=== PATIENT | female | born 1955 | race Hispanic/Latino ===

== ENCOUNTER 2017-06-29 07:35 | Outpatient (CLI) | payer BC ==
--- NOTE | 2017-06-29 08:37 | ULT ---
RENAL ULTRASOUND: INDICATION: History of renal stones. COMPARISON: CT of the abdomen and pelvis dated 06/29/17. FINDINGS: The right kidney measures 9.4 x 4.7 x 4.8 cm. The left kidney measures 10.3 x 4.5 x 5 cm. Prevoid bladder volume was 70.6 cc. There are bilateral ureteral jets seen at the level of the bladder. There is a stone present within the distal aspect of the level of the right UVJ measuring approximately 7 mm. There are left renal cysts that are stable to the CT examination, the largest seen within the superi or pole measuring 5.7 x 5.5 x 5.1 cm. There is a peripelvic cyst measuring 1.9 cm seen within the m id to lower aspect of the left renal sinus. No hydronephrosis is demonstrated. IMPRESSION: 1. Small nonobstructing stone seen within the distal right ureter at the level of the right uretero vesical junction measuring approximately 7 mm. Bilateral ureteral jets are demonstrated. No thomas hydronephrosis is seen involving the right kidney. 2. Left renal cyst. POS: [facility]
[2017-06-29 09:09] LABS: Anion Gap 16 mmol/L (10-20); BUN (Urea Nitrogen) 12 mg/dL (9.8-20.1); Calc. Creatinine Clearance 0 mL/min (70-130); Calcium 9.3 mg/dL (7.8-10.44); Carbon Dioxide 22 mmol/L (22-29); Chloride 106 mmol/L (98-107); Estimated GFR-MDRD 64
--- NOTE | 2017-06-29 09:36 | RAD ---
KUB: History: Renal calculi. FINDINGS: The bowel gas pattern appears nonobstructed. No definitive renal calculi are seen. Calcification in the right side of the pelvis could be a potential distal right ureteral calculus. There are arthriti c changes of the spine and hips. IMPRESSION: Calcification in the right side of the pelvis, potentially a distal ureteral calculus. POS: [facility]
== END 2017-06-29 07:36 | disposition home or self-care (01) ==
LOC: ULT 07:35
PROVIDERS: ATTEND Urology
DX: N20.2 Calculus of kidney with calculus of ureter (principal); Q61.01 Congenital single renal cyst; N28.89 Other specified disorders of kidney and ureter
CPT/HCPCS: 36415; 74000; 76770; 80048

== ENCOUNTER 2017-07-01 10:01 | Outpatient (CLI) | payer BC ==
[2017-07-01 11:33] LABS: Hematocrit 41.5 % (36.0-47.0); Mean Platelet Volume 7.9 fL (7.4-10.4); Red Blood Cell (RBC) Count 4.96 mill/uL (4.20-5.40); White Blood Cell (WBC) Count 8.8 thou/uL (4.8-10.8)
[2017-07-01 11:48] LABS: Anion Gap 16 mmol/L (10-20); BUN (Urea Nitrogen) 13 mg/dL (9.8-20.1); Calc. Creatinine Clearance 0 mL/min (70-130); Calcium 9.6 mg/dL (7.8-10.44); Carbon Dioxide 23 mmol/L (22-29); Chloride 104 mmol/L (98-107); Estimated GFR-MDRD 68
[2017-07-01 11:51] LABS: PTT 25.6 SEC (22.9-36.1); Prothrombin Time 13.3 SEC (12.0-14.7)
[2017-07-01 14:08] LABS: Bilirubin Negative (Negative); Blood, Urine Negative (Negative); Glucose, Urine (Dipstick) Negative (Negative); Ketone, Urine Negative (Negative); Nitrite Negative (Negative); Protein, Urine (Dipstick) Negative (Neg-Trace); Urobilinogen 0.2 mg/dL (0.2-1.0)
[2017-07-01 14:32] LABS: Bacteria/HPF Rare-Few HPF (None Seen); Hyaline Casts/LPF 0-3 HYALINE CAST LPF (0-3 Hyaline); RBC/HPF 0-3 HPF (0-3); Squamous Epithelial 0-3 HPF (0-3)
== END 2017-07-01 10:02 | disposition home or self-care (01) ==
LOC: LABBT 10:01
PROVIDERS: ATTEND Urology
DX: N20.1 Calculus of ureter (principal)
CPT/HCPCS: 80048; 81001; 85027; 85610; 85730; 87086

== ENCOUNTER 2017-07-06 07:11 | Day surgery (SDC) | payer BC ==
[2017-07-01 09:59] VITALS: BMI 28.8
[2017-07-06] MEDS ORDERED: Iothalamate Meglumine 60% 50 ML VIAL FS ONE ×2 (07:16→12:21)
--- NOTE | 2017-07-06 09:12 | RAD ---
AP ABDOMEN: Date: 07-06-17 History: 7-year-old preoperative abdominal radiographs. Comparison: 06-29-17 FINDINGS: Decrease in large amount of stool in the colon. There continues to be a moderate amount of stool rem aining. No definite evidence of distal right ureteral calculi is seen. IMPRESSION: No visible evidence of radiopaque ureteral calculi seen. POS: [facility]
[2017-07-06] MEDS ORDERED: Meropenem 500 MG in Sodium Chloride 0.9% 100 ML IVPB SCH (09:15)
[2017-07-06] MEDS ORDERED: Promethazine HCl 25 MG/ML VIAL ONE (10:12)
[2017-07-06] MEDS ORDERED: Fentanyl 100 MCG/2 ML VIAL ONE (10:12)
[2017-07-06] MEDS ORDERED: Scopolamine 1.5 mg/72 hour Patch ONE (10:36)
[2017-07-06] MEDS ORDERED: Ondansetron HCl/PF 4 MG/2 ML Vial ONE (10:44)
[2017-07-06] MEDS ORDERED: Propofol 200 MG/20 ML VIAL ONE (10:44)
[2017-07-06] MEDS ORDERED: ePHEDrine/0.9% NaCl/PF SYRINGE 50 mg/10 ml ONE (10:44)
[2017-07-06] MEDS ORDERED: PHENYLEPHRINE-NS 100 MCG/ML 10 ML SYRINGE ONE (10:44)
[2017-07-06] MEDS ORDERED: Lidocaine 1% PF 5 ML VIAL ONE (10:44)
[2017-07-06] MEDS ORDERED: SUGAMMADEX SODIUM 200 MG/2 ML VIAL ONE (11:14)
--- NOTE | 2017-07-06 11:47 | OP ---
DATE OF PROCEDURE: 07/06/2017 PRIMARY CARE PHYSICIAN: Collin Sheppard M.D. PREOPERATIVE DIAGNOSIS: A 61-year-old female with history of right 7 mm distal ureteral calculi just proximal to the uterovesicular junction since 04/2017. POSTOPERATIVE DIAGNOSIS: A 61-year-old female with history of right 7 mm distal ureteral calculi just proximal to the uterovesicular junction since 2016. PROCEDURES: Cystoscopy, right retrograde, balloon dilation of the distal ureter , rigid ureteroscopy, laser lithotripsy, basket extraction of stone fragments, 6 x 26 double-J ureteral stent placement with dangler taped to the pubic symphysis. SURGEON: Serina Jenkins D.O. ANESTHESIA: General. COMPLICATIONS: None apparent. DISPOSITION: To the recovery room in stable condition. SPECIMEN: Stone for chemical analysis. INTRAOPERATIVE FINDINGS: 1. Bladder is grossly unremarkable. 2. Right distal ureteral stone just proximal to the intramural ureter, approximately 7-8 mm. INDICATIONS FOR THE PROCEDURE AND HISTORY: Ms. Whitehead is a 61-year-old female with history of coronary artery disease and diabetes who presented for right flank pain, CT obtained by PCP demonstrating 7 mm right ureteral calculi distal , right punctate renal lithiasis. Left kidney is grossly unremarkable. She presented to my office just last month, with history of right distal ureteral calculi. The patient did not have significant discomfort; however, not had passed stone. Followup imaging demonstrated persistent stone nidus and advised regarding stone treatment given prolonged period of stone presence with non- progression on medical expulsion therapy. She has been provided with appropriate antibiotic regimen and desired to proceed. Risks and complications including bleeding, pain, infection, stricture formation, injury to ureter, bladder, kidney, and sepsis reviewed. All questions answered to her satisfaction and she desired to proceed. DESCRIPTION OF THE PROCEDURE: After an informed consent is signed, the patient is taken to the operating room, placed in a dorsal lithotomy position with the genital area prepped and draped in the usual surgical sterile fashion. Stone nidus was easily seen on fluoroscopy. Bilateral CONSTANTINE tolentino SCDs were provided. A 21 Dominican cystoscope was utilized for cystoscopy which demonstrated normal bladder mucosa. The UOs were in normal anatomical location. There was no evidence of bladder stone. A retrograde pyelogram was performed gently with 1: 1 diluted contrast demonstrating a filling defect consistent with the stone in the distal ureter. A 0.35 sensor wire was able to be passed without difficulty to the level of the right lower pole. Using a [employer] 4 cm 12 Dominican balloon dilator, we dilated the intramural ureter with ease. The rigid ureteroscope was able to be subsequently passed without difficulty. A large stone was seen in the level of the ureter just proximal to the intramural portion. Using 365 micron laser fiber, the stone was prepped, fragmented into multiple pieces. At the end of the procedure, all stone fragments were evacuated, rendered stone free. As there is endoscopic clearance, we did place a stent on dangler. A 6 x 26 double-J ureteral stent was passed without difficulty with the proximal coil in the renal pelvis, distal coil with adequate redundancy in the bladder. She tolerated the procedure well and transported to the recovery room in stable condition. As there is endoscopic clearance, she will see me on Tuesday for stent pull and dangler. She is to continue her antibiotic regimen, refill prescription for ciprofloxacin for 7 days provided. AZO p.r.n., Ditropan 5 mg p.r.n., Colace p.r.n., and Valatie 5/ 325 #50. MTDD
[2017-07-06] MEDS ORDERED: Phenazopyridine HCl 97.5 MG TABLET ONE (11:57)
[2017-07-06] MEDS ORDERED: Oxybutynin Chloride 5 MG TAB ONE (11:57)
--- NOTE | 2017-07-06 12:55 | RAD ---
REROGRADE URETEROGRAM: HISTORY: Ureteral stone. TECHNIQUE: Intraoperative fluoroscopy was provided for a retrograde study, as performed by Dr. Jenkins. FINDINGS: Multiple spot fluoroscopic images show contrast opacification of a right renal collecting system wit h minimal caliectasis. The ureter is not significantly dilated. Final images show a double pigtail catheter overlying the course of the right ureter. Flow time equals 0.3 minutes. POS: [facility]
== END 2017-07-06 13:51 | disposition home or self-care (01) ==
LOC: SDC 07:11
PROVIDERS: ATTEND Urology
DX: N20.1 Calculus of ureter (principal); E11.40 Type 2 diabetes mellitus with diabetic neuropathy, unspecified; I25.10 Atherosclerotic heart disease of native coronary artery without angina pectoris; F32.9 Major depressive disorder, single episode, unspecified; M79.7 Fibromyalgia; G25.81 Restless legs syndrome; K21.9 Gastro-esophageal reflux disease without esophagitis; G43.909 Migraine, unspecified, not intractable, without status migrainosus; K76.0 Fatty (change of) liver, not elsewhere classified; Z88.0 Allergy status to penicillin; Z88.8 Allergy status to other drugs, medicaments and biological substances; Z79.2 Long term (current) use of antibiotics; Z79.84 Long term (current) use of oral hypoglycemic drugs; Z79.899 Other long term (current) drug therapy; Z95.5 Presence of coronary angioplasty implant and graft; Z87.442 Personal history of urinary calculi; Z90.89 Acquired absence of other organs; Z98.890 Other specified postprocedural states
CPT/HCPCS: 74000; 74420; 82365; 88300; C1758; C1769; J2001; J2185; J2405; J2550; J2704; J3010; J7050; Q9961

== ENCOUNTER 2017-08-30 11:10 | Outpatient (CLI) | payer BC ==
--- NOTE | 2017-08-30 13:42 | MMO ---
BILATERAL SCREENING MAMMOGRAM: Date: 08-30-17 Comparison: 2012 This study is interpreted with the assistance of computer aided detection. FINDINGS: Scattered fibroglandular densities. There is an oblong shaped mass density in the inner left breast w ith internal calcifications which appear stable. There are other scattered benign appearing calcifica tions including vascular calcifications in both breasts. No suspicious interval change. Recommend one year follow up. IMPRESSION: BIRADS 2 - benign findings. POS: [facility]
== END 2017-08-30 11:11 | disposition home or self-care (01) ==
LOC: MAMMO 11:10
PROVIDERS: ATTEND Family Medicine
DX: Z12.31 Encounter for screening mammogram for malignant neoplasm of breast (principal)
CPT/HCPCS: 77067; G0202

== ENCOUNTER 2017-11-15 07:46 | Outpatient (CLI) | payer BC ==
--- NOTE | 2017-11-15 08:34 | RAD ---
SINGLE VIEW OF THE ABDOMEN: COMPARISON: 07/06/17. HISTORY: Renal calculi. FINDINGS: A single view of the abdomen shows a nonspecific, nonobstructed bowel gas pattern. No obvious calcif ications are seen projecting over either renal shadow or along the course of the ureters. Two ligati on clips are seen in the pelvis. IMPRESSION: Unremarkable exam. POS: [facility]
--- NOTE | 2017-11-15 08:47 | ULT ---
ULTRASOUND RENAL BILATERAL STANDARD: HISTORY: Calculus of kidney. COMPARISON: Ultrasound 06/29/17. FINDINGS: The right kidney measures 8.9 x 4.5 x 4.5 cm and the left kidney measures 12.5 x 5.2 x 5.4 cm. Diffu se increased hepatic echotexture. Large cyst superior pole left kidney measures up to 6.1 cm. There appears to be a calculus within th e urinary bladder. The prevoid urinary bladder volume was 193 mL and postvoid volume is 25 mL. No hydronephrosis. IMPRESSION: 1. Similar appearance to the large left renal cyst. 2. Increased hepatic echotexture. 3. Calculus layering at the urinary bladder measuring 8 mm. POS: [facility]
[2017-11-15 08:48] LABS: Bilirubin Negative (Negative); Blood, Urine Moderate (Negative); Clarity CLOUDY (Clear); Glucose, Urine (Dipstick) Negative (Negative); Leukocyte Large (Negative); Nitrite Positive (Negative); Protein, Urine (Dipstick) Negative (Neg-Trace); Specific Gravity, Urine 1.016 (1.002-1.036); Urobilinogen 0.2 mg/dL (0.2-1.0); pH, Urine 5.5 (5.0-9.0)
[2017-11-15 08:50] LABS: Bacteria/HPF 4+ HPF (None Seen); Hyaline Casts/LPF 0-3 HYALINE CAST LPF (0-3 Hyaline); RBC/HPF 21-50 HPF (0-3)
[2017-11-15 09:10] LABS: Anion Gap 13 mmol/L (10-20); BUN (Urea Nitrogen) 9 mg/dL (9.8-20.1); Calc. Creatinine Clearance 0 mL/min (70-130); Calcium 9.8 mg/dL (7.8-10.44); Carbon Dioxide 26 mmol/L (23-31); Chloride 105 mmol/L (98-107); Estimated GFR-MDRD 71; Glucose 131 mg/dL (80-115); Potassium 4.2 mmol/L (3.5-5.1); Sodium 140 mmol/L (136-145); Uric Acid 4.4 mg/dL (2.6-6.0)
== END 2017-11-15 07:47 | disposition home or self-care (01) ==
LOC: ULT 07:46
PROVIDERS: ATTEND Urology
DX: N20.0 Calculus of kidney (principal); N28.1 Cyst of kidney, acquired; N21.0 Calculus in bladder
CPT/HCPCS: 36415; 74018; 76770; 80048; 81001; 83970; 84550; 87077; 87086; 87186

== ENCOUNTER 2018-04-17 15:38 | Outpatient (CLI) | payer BC ==
--- NOTE | 2018-04-17 17:14 | RAD ---
RIGHT KNEE 4 VIEWS: Date: 04/17/18 HISTORY: Fall. Right knee injury. FINDINGS: Joint spaces are preserved. No acute fracture, dislocation, or fluid distention of the suprapatellar bursa. IMPRESSION: No acute osseous abnormalities are demonstrated. POS: [facility]
== END 2018-04-17 15:39 | disposition home or self-care (01) ==
LOC: SCSRAD 15:38
PROVIDERS: ATTEND Family Medicine
DX: M25.561 Pain in right knee (principal)

== ENCOUNTER 2018-08-31 07:48 | Outpatient (CLI) | payer BC | END 2018-08-31 07:49 | disposition home or self-care (01) | LOC: BICMAMMO 07:48 | PROVIDERS: ATTEND Family Medicine | DX: Z12.31 Encounter for screening mammogram for malignant neoplasm of breast (principal); Z80.3 Family history of malignant neoplasm of breast | CPT/HCPCS: 77063; 77067 ==

== ENCOUNTER 2018-09-11 07:45 | Outpatient (CLI) | payer BC ==
--- NOTE | 2018-09-11 17:17 | NM ---
NUCLEAR MEDICINE GASTRIC EMPTYING WITH MEAL: HISTORY: Gastroparesis. COMPARISON: None. TECHNIQUE: The patient was given 2.1 millicuries of technetium 99m sulfur colloid orally in eggs. FINDINGS: There was 39% emptying at 30 minutes, 59% emptying at 1 hour, 61% emptying at 2 hours, 66% emptying a t 3 hours, and 77% emptying at 4 hours. IMPRESSION: Delayed gastric emptying with only 77% emptying at 4 hours. POS: [facility]
== END 2018-09-11 07:46 | disposition home or self-care (01) ==
LOC: NM 07:45
PROVIDERS: ATTEND Internal Medicine Gastroenterology
DX: K76.0 Fatty (change of) liver, not elsewhere classified (principal); Z87.19 Personal history of other diseases of the digestive system
CPT/HCPCS: 78264; A9541

== ENCOUNTER 2018-09-15 07:46 | Outpatient (CLI) | payer BC ==
--- NOTE | 2018-09-15 09:16 | ULT ---
ULTRASOUND HEPATIC DOPPLER: Date: 09/15/18 HISTORY: Gallbladder polyps. Fatty liver. COMPARISON: CT abdomen dated 04/29/17. FINDINGS: Visualized portions of the aorta, IVC, and pancreas are unremarkable. Increased hepatic echotexture s uggesting steatosis. Portal vein is patent with antegrade flow. Common bile duct measures 4.0 mm, normal. Right kidney measures 10.1 x 4.9 x 5.4 cm, without mass, hydronephrosis, or abnormal calcifications. Spleen measures 9.2 cm in length. Large cyst superior pole left kidney measuring up to 5.0 cm. There appears to be a cholesterolosis with polyposis of the gallbladder. IMPRESSION: 1. Diffuse hepatic steatosis. 2. Likely a cholesterolosis of the gallbladder with multiple cholesterol polyps. 3. Left renal cyst. 4. Normal phasicity and flow of the portal and hepatic veins. 5. Normal phasicity and flow of the hepatic artery and splenic artery. POS: [facility]
== END 2018-09-15 07:47 | disposition home or self-care (01) ==
LOC: ULT 07:46
PROVIDERS: ATTEND Internal Medicine Gastroenterology
DX: K76.0 Fatty (change of) liver, not elsewhere classified (principal); N28.1 Cyst of kidney, acquired; Z87.19 Personal history of other diseases of the digestive system
CPT/HCPCS: 76705

== ENCOUNTER 2018-11-06 06:44 | Outpatient (CLI) | payer BC | END 2018-11-06 06:45 | disposition home or self-care (01) | LOC: LABBT 06:44 | PROVIDERS: ATTEND Surgery | DX: Z01.818 Encounter for other preprocedural examination (principal); K82.4 Cholesterolosis of gallbladder | CPT/HCPCS: 93005; 93010 ==

== ENCOUNTER 2018-11-09 07:26 | Day surgery (SDC) | payer BC ==
[2018-11-06 11:52] VITALS: BMI 28.8
[2018-11-09] MEDS ORDERED: Fentanyl 100 MCG/2 ML VIAL ONE (08:42)
[2018-11-09] MEDS ORDERED: Midazolam HCl 2 mg/2 ml Vial ONE (08:42)
[2018-11-09] MEDS ORDERED: Bupivacaine HCl 0.5%/Epinephrine 1:200,000/PF 30 ml Vial ONE (10:15)
[2018-11-09] MEDS ORDERED: Glycopyrrolate 0.2 MG/ML 5 ML SYRINGE ONE (13:19)
[2018-11-09] MEDS ORDERED: Rocuronium Bromide 10 MG/ML (10ML VIAL) ONE (13:19)
[2018-11-09] MEDS ORDERED: Ondansetron PF 4 MG/2 ML Vial ONE (13:19)
[2018-11-09] MEDS ORDERED: Dexamethasone 20 MG/5 ML VIAL ONE (13:19)
[2018-11-09] MEDS ORDERED: PROPOFOL 200 MG/20 ML VIAL ONE (13:19)
[2018-11-09] MEDS ORDERED: PHENYLEPHRINE-NS 100 MCG/ML 10 ML SYRINGE ONE (13:19)
--- NOTE | 2018-11-10 15:42 | OP ---
DATE OF PROCEDURE: 11/09/2018 PREOPERATIVE DIAGNOSES: 1. History of gallbladder polyps, multiple. 2. History of chronic hepatitis. 3. History of chronic steatohepatitis. POSTOPERATIVE DIAGNOSES: 1. History of gallbladder polyps, multiple. 2. History of chronic hepatitis. 3. History of chronic steatohepatitis. PROCEDURES: 1. Laparoscopic cholecystectomy. 2. Liver biopsy. ANESTHESIA: General. COMPLICATIONS: None. SPECIMEN: Gallbladder and liver biopsy. PROCEDURE IN DETAIL: The patient was taken to the operating room and laid supine on the operating room table. After general anesthetic was obtained, the abdomen was prepped and draped in a sterile fashion. A curved incision was made below the umbilicus. Cautery was used to dissect down to the umbilical fascia. Umbilical fascia was incised and held up using a Monie. The abdominal cavity was entered using a Ludivina clamp. Holding stitch of Vicryl was placed on each side of the fascia. Martinez trocar was placed. High-flow pneumoperitoneum was obtained. An upper midline 5 mm port and 2 right upper quadrant 5 mm ports were placed under direct camera visualization. The gallbladder was retracted from the gallbladder fossa. The peritoneum of the gallbladder was opened anteriorly and posteriorly. The critical view triangle was seen showing only the cystic duct and cystic artery branching from medial to lateral. There were no other branching structures. Two clips were placed proximally on the cystic duct and one laterally. It was cut using laparoscopic scissors. The cystic artery was taken in the same way. Electrocautery was then used to dissect the gallbladder out of the gallbladder fossa. The gallbladder was placed in an Endo catch bag and brought out through the Martinez. There was no bleeding or bile in the liver bed. The cystic duct stump and cystic artery stump were intact, without evidence of extravasation or bleeding. All port sites were infiltrated using local anesthesia. All ports were removed under camera visualization. Pneumoperitoneum was let down. A core biopsy of the liver is performed and the area in the liver is cauterized using cautery. The Vicryl was used to close the fascial defect below the umbilicus. All incisions were irrigated and closed using 4-0 Monocryl and Dermabond. The patient was en route to Recovery in stable condition. All instrument counts, needle counts and lap counts were correct. Job ID: [id number]
== END 2018-11-09 11:32 | disposition home or self-care (01) ==
LOC: SDC 07:26
PROVIDERS: ATTEND Surgery
PROC: 0FT44ZZ Resection of Gallbladder, Percutaneous Endoscopic Approach (ICD-10-PCS; principal; 2018-11-09)
PROC: 0FB03ZX Excision of Liver, Percutaneous Approach, Diagnostic (ICD-10-PCS; principal; 2018-11-09)
DX: K82.4 Cholesterolosis of gallbladder (principal); K76.0 Fatty (change of) liver, not elsewhere classified; E11.40 Type 2 diabetes mellitus with diabetic neuropathy, unspecified; I25.10 Atherosclerotic heart disease of native coronary artery without angina pectoris; F32.9 Major depressive disorder, single episode, unspecified; M79.7 Fibromyalgia; G25.81 Restless legs syndrome; K21.9 Gastro-esophageal reflux disease without esophagitis; G43.909 Migraine, unspecified, not intractable, without status migrainosus; G47.00 Insomnia, unspecified; E11.43 Type 2 diabetes mellitus with diabetic autonomic (poly)neuropathy; K31.84 Gastroparesis; Z79.84 Long term (current) use of oral hypoglycemic drugs; Z79.899 Other long term (current) drug therapy; Z88.0 Allergy status to penicillin; Z88.8 Allergy status to other drugs, medicaments and biological substances; Z95.5 Presence of coronary angioplasty implant and graft
CPT/HCPCS: 88304; 88307; 88313; J0670; J1100; J2250; J2405; J2704; J3010

== ENCOUNTER 2019-03-19 16:15 | Observation (INO) | payer BC ==
--- NOTE | 2019-03-19 16:59 | CT ---
CT Brain WO Con HISTORY: Fall with head injury COMPARISON: None. FINDINGS: The ventricular and cisternal system is within normal limits. There is some decreased atten uation to the periventricular white matter suggesting some chronic white matter change. There are no signs of intracerebral hemorrhage or extra-axial fluid collections. The mastoid air cells are mahendra r. Minimal ethmoid air cell mucosal changes seen. IMPRESSION: No acute intracranial abnormalities.
--- NOTE | 2019-03-19 17:23 | RAD ---
LEFT KNEE FOUR VIEWS: 03/19/19 HISTORY: Knee injury. The bones appear slightly demineralized. There are arthritic changes of the knee. There is no signs o f fracture or dislocation. No joint effusion. IMPRESSION: Mild arthritic changes of the knee. POS: [facility]
--- NOTE | 2019-03-19 17:24 | RAD ---
RIGHT FOOT THREE VIEWS: 03/19/19 HISTORY: Injury to foot. There is some minimal arthritic changes of the first metatarsophalangeal joint. There is no signs of fracture or dislocation. IMPRESSION: No evidence of fracture. POS: [facility]
--- NOTE | 2019-03-19 17:27 | RAD ---
LEFT HAND THREE VIEWS: 03/19/19 HISTORY: Fall. There is a fracture involving the base of the fifth metacarpal. Also on the AP projection, there is s ome bony overlap with the hammate which would suggest there is an associated dislocation. There is al so a base of the fourth metacarpal fracture. IMPRESSION: Base of fourth and fifth metacarpal fractures. The base of the fifth metacarpal appears to be dorsall y displaced in relation to the hammate. POS: [facility]
[2019-03-19] MEDS ORDERED: Lidocaine 1% w/Epinephrine 1:100K 20 ML VIAL ONE (17:54)
[2019-03-19] MEDS ORDERED: Acetaminophen 500 MG TAB ONE (17:54)
[2019-03-19] MEDS ORDERED: Ketorolac Tromethamine 30 MG/ML VIAL ONE (18:08)
[2019-03-19] MEDS ORDERED: Adacel (T-DAP) 0.5 ML SYRINGE ONE (18:08)
--- NOTE | 2019-03-19 18:33 | CT ---
CT OF LEFT WRIST PERFORMED WITHOUT CONTRAST ENHANCEMENT: 03/19/19 HISTORY: Fall with wrist injury. The distal radius and ulna are normal in appearance. The proximal carpal row is normal. There is an intra-articular fracture of the base of the fourth metacarpal. This is almost a verticall y oriented fracture. The fracture extends from the volar side of the metacarpal shaft into the joint space. The relationship with the hammate is fairly normal. The fracture involving the base of the fifth metatarsal is a small avulsive type injury and it is ass ociated with volar dislocation of the base of the fifth metacarpal. It lies directly on the ulnar yumiko e of the hook of the hammate. There is a fracture of the ulnar side of the hammate associated with th is. The hook of the hammate is intact. IMPRESSION: 1. Essentially nondisplaced intra-articular fracture of the base of the fourth metacarpal. 2. Fracture of the base of the fifth metacarpal which is a small avulsive type fracture also inc luding a fracture along the ulnar side of the hamate bone and volar dislocation of the base of the fi fth metacarpal which lies directly adjacent to the hook of the hammate. POS: [facility]
[2019-03-19] MEDS ORDERED: Bacitracin Zinc 1 Packet ONE (19:14)
[2019-03-19 19:51] LABS: #Basophils 0.1 thou/uL (0.0-0.2); #Eosinphils 0.5 thou/uL (0.0-0.7); #Lymphocytes 3.3 thou/uL (1.20-3.40); #Monocytes 0.7 thou/uL (0.11-0.59); #Neutrophils 5.3 thou/uL (1.40-6.50); %Basophils 0.8 % (0.0-1.0); %Eosinophils 5.6 % (0.0-10.0); %Lymphocytes 33.4 % (21.0-51.0); %Monocytes 6.8 % (0.0-10.0); %Neutrophils 53.5 % (42.0-75.0); Mean Corpuscular HGB CONC 33.4 g/dL (32.0-36.0); Mean Corpuscular Hemoglobin 26.9 pg (27.0-31.0); Mean Corpuscular Volume 80.6 fL (78.0-98.0); Mean Platelet Volume 8.5 fL (7.4-10.4); Platelet Count 192 thou/uL (130-400); RBC Distribution Width 13.8 % (11.5-14.5); Red Blood Cell (RBC) Count 4.46 mill/uL (4.20-5.40); White Blood Cell (WBC) Count 9.8 thou/uL (4.8-10.8)
[2019-03-19 20:04] LABS: Anion Gap 14 mmol/L (10-20); BUN (Urea Nitrogen) 14 mg/dL (9.8-20.1); Calc. Creatinine Clearance 0 mL/min (70-130); Carbon Dioxide 22 mmol/L (23-31); Chloride 108 mmol/L (98-107); Estimated GFR-MDRD 80; Glucose 107 mg/dL (80-115); Potassium 4.2 mmol/L (3.5-5.1); Sodium 140 mmol/L (136-145)
[2019-03-19] MEDS ORDERED: Morphine 2 MG/ML SYRINGE SLOW IVP PRN (21:57)
[2019-03-19] MEDS ORDERED: Morphine 4 MG/ML VIAL SLOW IVP PRN (21:57)
[2019-03-19] MEDS ORDERED: Ondansetron ODT 4 MG TAB SL PRN (21:58)
[2019-03-19] MEDS ORDERED: Ondansetron PF 4 MG/2 ML Vial IVP PRN (21:58)
[2019-03-19 23:34] VITALS: BMI 28.8
[2019-03-20] MEDS ORDERED: Clindamycin/D5W 600 MG in Premix Bag 1 BAG IVPB SCH ×2 (06:00→13:00)
[2019-03-20] MEDS ORDERED: Clindamycin/D5W 600 mg/50 ml Premix Bag ONE (07:07)
[2019-03-20] MEDS ORDERED: Midazolam HCl 2 mg/2 ml Vial ONE (07:19)
[2019-03-20] MEDS ORDERED: Fentanyl 100 MCG/2 ML VIAL ONE ×2 (07:19→10:10)
[2019-03-20] MEDS ORDERED: Dexamethasone 4 mg/ml Vial ONE (07:29)
[2019-03-20] MEDS ORDERED: Scopolamine 1.5 mg/72 hour Patch ONE (07:31)
[2019-03-20] MEDS ORDERED: Propofol 1,000 MG/100 ML VIAL IV ONE (08:38)
[2019-03-20] MEDS ORDERED: Bacitracin Zinc Ointment 30 gm TUBE ONE (08:39)
[2019-03-20] MEDS ORDERED: Bupivacaine PF 0.5% 30 ML VIAL ONE (08:39)
[2019-03-20] MEDS ORDERED: Sodium Chloride 0.9% 10 ML ONE (08:39)
[2019-03-20] MEDS ORDERED: Bupivacaine HCl 0.5%/Epinephrine 1:200,000/PF 30 ml Vial ONE (10:44)
[2019-03-20] MEDS ORDERED: Ondansetron HCl/PF 4 MG/2 ML Vial IVP PRN (12:03)
[2019-03-20] MEDS ORDERED: Morphine 4 MG/ML VIAL SLOW IVP PRN (12:57)
[2019-03-20] MEDS ORDERED: HYDROcodone/Acetaminophen 7.5/325 mg Tablet PO PRN (12:57)
--- NOTE | 2019-03-20 13:31 | RAD ---
RIGHT HAND: INDICATIONS: Imaging during open reduction and internal fixation procedure. TECHNIQUE: A total of 5 fluoroscopic views are presented from the OR. FINDINGS: These images show plate and screws transfixing the 4th metacarpal. Pins transfix the base of the 5th metacarpal. POS: [facility]
[2019-03-20] MEDS ORDERED: Dexamethasone 20 MG/5 ML VIAL ONE (14:27)
[2019-03-20] MEDS ORDERED: Ondansetron PF 4 MG/2 ML Vial ONE (14:27)
[2019-03-20] MEDS ORDERED: PROPOFOL 200 MG/20 ML VIAL ONE (14:27)
[2019-03-20 15:44] VITALS: BP 107/71; TEMP 98.7
--- NOTE | 2019-03-20 17:01 | OP ---
DATE OF PROCEDURE: 03/20/2019 PREOPERATIVE DIAGNOSES: 1. Left 5th carpometacarpal dislocation. 2. 4th carpometacarpal dislocation, left side. 3. 5th metacarpal base fracture, left side. 4. Comminuted 4th metacarpal fracture, left side. POSTOPERATIVE FINDINGS: 1. Left 5th carpometacarpal dislocation. 2. 4th carpometacarpal dislocation, left side. 3. 5th metacarpal base fracture, left side. 4. Comminuted 4th metacarpal fracture, left side. 5. She has a 5-part left ring finger metacarpal base fracture with subluxation. 6. Two-part small finger metacarpal fracture base with dislocation of small hamate fragment, dorsal comminution. PROCEDURES PERFORMED: 1. Open treatment of hamate fracture with resection of avulsion. 2. Left ring finger metacarpal fracture open reduction and internal fixation. 3. Left small finger metacarpal fracture open reduction and internal fixation. 4. Left small finger carpometacarpal joint dislocation open reduction with pinning. 5. Left ring finger carpometacarpal dislocation open treatment. ESTIMATED BLOOD LOSS: 10 mL. TOURNIQUET TIME: 90 minutes. ANESTHESIA: Combination of block with LMA technique. COMPLICATIONS: None. DESCRIPTION OF PROCEDURE: After successful block augmented by LMA technique anesthesia intraoperatively, the patient had the limb prepped and draped. Time-out was done appropriately and then we exsanguinated the limb. Inflated the tourniquet at 250 mmHg pressure. Brought the C-arm to the field. We identified the findings seen in the preoperative x-ray and CT scan. The 4th metacarpal fracture. Once we made the incision, carried through skin and subcutaneous tissue, released the retinaculum between the 4th and 5th tendons and exposed the intermetatarsal ligament. Intermetatarsal ligament had about 5 mm of it still intact on both sides of the 4th and 5th interspace. The 5th was completely dislocated. The base of the 4th was subluxed and was intra-articular 3-part fracture, which we immediately pinned once we reduced the base. Then, there was an extension of fragmentation of a long oblique fracture, almost 1 cm long from dorsal palmar. This had to be irrigated, debrided, and then reduced. We achieved anatomical fixation of this fracture with external rotation, held with K-wires, then we placed a 1.5 plate and screws with 3 screws proximal fracture and 3 screws distal. Rotation was excellent. We then cleaned out the joint, include removing the hamate avulsion fracture, which is a sleeve, less than a millimeter of the dorsal and ulnar hamate. There was a corner fracture avulsion fragment approximately 6 mm in length completely anterior-posterior almost 14 mm, and this was reduced before we did the 5th carpometacarpal reduction and held with two 0.035 K-wires as screw fixation may have fragmented this already denuded fracture fragment. Once we achieved this, we then reduced the joint, anatomically less than a millimeter space clinically and radiographically between the 4th and 5th carpometacarpal joints. We K-wire fixed this with a 0.035 K-wire, one from antegrade and one retrograde. Radiographs showed excellent position of the wires in the joint. At this point, we released the tourniquet. We had hemostasis. We repaired the 5-mm intermetatarsal ligament with 4-0 Prolene through [id number] patterns. We then repaired the retinaculum, holding the extensor mechanisms with a 3-0 Monocryl, 4-0 Monocryl subcutaneously, and 4-0 nylon epidermal closure for the primary incision with excellent hemostasis. We injected with 10 mL of Marcaine 0.5%, placed in a bulky dressing over bacitracin, Adaptic, 4x4, and Kerlix. The patient had a splint placed to the level of the MP joint of the small and ring finger with other digits free. She left the operating room without complication. Job ID: [id number]
== END 2019-03-20 15:45 | disposition home or self-care (01) ==
LOC: SCSER 16:15 → SURG A 21:20
PROVIDERS: ADMIT Orthopaedic Surgery Hand Surgery; ATTEND Orthopaedic Surgery Hand Surgery
PROC: 0PS Upper Bones, Reposition (ICD-10-PCS; principal; 2019-03-20)
PROC: 0PS Upper Bones, Reposition (ICD-10-PCS; 2019-03-20)
DX: S63.055A Dislocation of other carpometacarpal joint of left hand, initial encounter (principal); S62.317A Displaced fracture of base of fifth metacarpal bone, left hand, initial encounter for closed fracture; S62.305A Unspecified fracture of fourth metacarpal bone, left hand, initial encounter for closed fracture; S62.142A Displaced fracture of body of hamate [unciform] bone, left wrist, initial encounter for closed fracture; I10 Essential (primary) hypertension; E11.9 Type 2 diabetes mellitus without complications; I25.2 Old myocardial infarction; F32.9 Major depressive disorder, single episode, unspecified; Z79.82 Long term (current) use of aspirin; Z79.84 Long term (current) use of oral hypoglycemic drugs; Z79.899 Other long term (current) drug therapy; Z88.0 Allergy status to penicillin; Z88.5 Allergy status to narcotic agent; Z88.8 Allergy status to other drugs, medicaments and biological substances; W01.0XXA Fall on same level from slipping, tripping and stumbling without subsequent striking against object, initial encounter
CPT/HCPCS: 12001; 36415; 70450; 76000; 80048; 85025; 90471; 90715; 96372; C1713; G0378; J0670; J1100; J1885; J2001; J2250; J2405; J2704; J3010; J3490; S0020

== ENCOUNTER 2019-10-04 07:59 | Outpatient (CLI) | payer BC ==
--- NOTE | 2019-10-04 09:40 | MMO ---
Bilateral MAMMO Bilat Screen DDI+DINAH. CLINICAL HISTORY: Patient is 64 years old and is seen for screening. The patient has the following family history of breast cancer: paternal grandmother, at age 42, malignant (generic). The patient has no personal history of cancer. The patient has a history of left Excisional Biopsy in 1973 - benign, left Excisional Biopsy in 1976 - benign, left Explantation in 1981 - benign and Breast reduction in 1989. VIEWS: The views performed were: bilateral craniocaudal with tomosynthesis and bilateral mediolateral oblique with tomosynthesis. FILMS COMPARED: The present examination has been compared to prior imaging studies performed at [facility] on 05/21/2014, 08/30/2017 and 08/31/2018. This study has been interpreted with the assistance of computer-aided detection. MAMMOGRAM FINDINGS: There are scattered fibroglandular densities. Finding 1: There are stable benign appearing calcifications seen in both breasts. Finding 2: There is a stable oval mass measuring 24 millimeters with circumscribed margins and associated dystrophic calcifications seen in the left breast. There are no suspicious masses, suspicious calcifications, or new areas of architectural distortion. IMPRESSION: THERE IS NO MAMMOGRAPHIC EVIDENCE OF MALIGNANCY. A ROUTINE FOLLOW-UP MAMMOGRAM IN 1 YEAR IS RECOMMENDED. THE RESULTS OF THIS EXAM WERE SENT TO THE PATIENT. ACR BI-RADS Category 2 - Benign finding MAMMOGRAPHY NOTE: 1. A negative mammogram report should not delay a biopsy if a dominant of clinically suspicious mass is present. 2. Approximately 10% to 15% of breast cancers are not detected by mammography. 3. Adenosis and dense breasts may obscure an underlying neoplasm. Reported by: TITO FERNANDEZ MD Electonically Signed: [id number]
== END 2019-10-04 08:00 | disposition home or self-care (01) ==
LOC: BICMAMMO 07:59
PROVIDERS: ATTEND Family Medicine
DX: Z12.31 Encounter for screening mammogram for malignant neoplasm of breast (principal); Z80.3 Family history of malignant neoplasm of breast; Z98.890 Other specified postprocedural states
CPT/HCPCS: 77063; 77067

== ENCOUNTER 2021-01-30 07:54 | Outpatient (CLI) | payer BC | END 2021-01-30 07:55 | disposition home or self-care (01) | LOC: BICMAMMO 07:54 | PROVIDERS: ATTEND Family Medicine | DX: Z12.31 Encounter for screening mammogram for malignant neoplasm of breast (principal) | CPT/HCPCS: 77063; 77067 ==

== ENCOUNTER 2022-01-08 07:46 | Outpatient (CLI) | payer BC ==
[2022-01-08 08:34] LABS: Estimated GFR-MDRD - POC Greater than 90
[2022-01-08] MEDS ORDERED: Iopamidol 370 76% 100 ML VIAL ONE (09:56)
== END 2022-01-08 07:47 | disposition home or self-care (01) ==
LOC: CT 07:46
PROVIDERS: ATTEND Internal Medicine Cardiovascular Disease
DX: R06.02 Shortness of breath (principal); K44.9 Diaphragmatic hernia without obstruction or gangrene
CPT/HCPCS: 71275; 82565; Q9967

== ENCOUNTER 2022-05-11 13:26 | Outpatient (CLI) | payer BC | END 2022-05-11 13:27 | disposition home or self-care (01) | LOC: RAD 13:26 | PROVIDERS: ATTEND Internal Medicine Critical Care Medicine | DX: R06.00 Dyspnea, unspecified (principal); K44.9 Diaphragmatic hernia without obstruction or gangrene; J98.4 Other disorders of lung | CPT/HCPCS: 71046 ==

== ENCOUNTER 2022-08-20 11:13 | Outpatient (CLI) | payer BC ==
[2022-08-20 11:37] LABS: #Basophils 0.1 10x3/uL (0.0-0.2); #Eosinphils 0.4 10x3/uL (0.0-0.5); #Monocytes 0.5 10x3/uL (0.0-1.1); #Neutrophils 3.5 10x3/uL (1.5-8.4); %Eosinophils 5.6 % (0.0-6.0); %Lymphocytes 29.1 % (18.0-47.0); %Monocytes 8.2 % (0.0-10.0); %Neutrophils 55.6 % (40.0-75.0); Mean Corpuscular HGB CONC 33.3 g/dL (32.0-36.0); Mean Corpuscular Hemoglobin 29.1 pg (27.0-33.0); Mean Corpuscular Volume 87.2 fl (81.6-98.3); Mean Platelet Volume 10.8 fl (7.4-10.4); Platelet Count 258 10x3/uL (150-450); RBC Distribution Width 13.2 % (11.5-14.5); Red Blood Cell (RBC) Count 4.47 10x6/uL (3.90-5.03); White Blood Cell (WBC) Count 6.2 10x3/uL (3.5-10.5)
[2022-08-20 12:26] LABS: Anion Gap 18 mmol/L (10-20); BUN (Urea Nitrogen) 17 mg/dL (9.8-20.1); Calc. Creatinine Clearance 0 mL/min (70-130); Calcium 9.7 mg/dL (7.8-10.44); Carbon Dioxide 19 mmol/L (23-31); Chloride 106 mmol/L (98-107); Estimated GFR 84; Glucose 142 mg/dL (80-115); Potassium 4.5 mmol/L (3.5-5.1); Sodium 138 mmol/L (136-145)
== END 2022-08-20 11:14 | disposition home or self-care (01) ==
LOC: LABBT 11:13
PROVIDERS: ATTEND Orthopaedic Surgery Hand Surgery
DX: Z01.818 Encounter for other preprocedural examination (principal); M65.351 Trigger finger, right little finger; S63.204A Unspecified subluxation of right ring finger, initial encounter
CPT/HCPCS: 80048; 85025; 93005; 93010

== ENCOUNTER 2022-08-24 06:27 | Day surgery (SDC) | payer BC ==
[2022-08-23 13:16] VITALS: BMI 29.9
[2022-08-24] MEDS ORDERED: Neomycin-Polymyxin 1 ML AMP ONE (07:31)
[2022-08-24] MEDS ORDERED: Bupivacaine PF 0.5% 30 ML VIAL ONE (07:31)
[2022-08-24] MEDS ORDERED: Bacitracin Zinc Ointment 30 gm TUBE ONE (07:31)
[2022-08-24] MEDS ORDERED: Lidocaine 1% MPF 2 ML VIAL ONE (07:59)
[2022-08-24] MEDS ORDERED: CEFAZOLIN 2 GM VIAL ONE (07:59)
[2022-08-24] MEDS ORDERED: Sodium Chloride 0.9% 100 ML ONE (08:00)
[2022-08-24] MEDS ORDERED: Clindamycin/D5W 900 mg/50 ml Premix Bag ONE (08:07)
[2022-08-24] MEDS ORDERED: Levofloxacin 500 mg/D5W 100 ml Premix Bag ONE (08:07)
[2022-08-24] MEDS ORDERED: Dexamethasone 20 MG/5 ML VIAL ONE (08:28)
[2022-08-24] MEDS ORDERED: Ketorolac Tromethamine 30 MG/ML VIAL ONE (08:28)
[2022-08-24] MEDS ORDERED: Ondansetron PF 4 MG/2 ML Vial ONE (08:28)
[2022-08-24] MEDS ORDERED: PROPOFOL 200 MG/20 ML VIAL ONE (08:28)
== END 2022-08-24 11:15 | disposition home or self-care (01) ==
LOC: SDC 06:27
PROVIDERS: ATTEND Orthopaedic Surgery Hand Surgery
DX: M65.331 Trigger finger, right middle finger (principal); M65.341 Trigger finger, right ring finger; M65.351 Trigger finger, right little finger; M66.241 Spontaneous rupture of extensor tendons, right hand; M79.7 Fibromyalgia; E11.40 Type 2 diabetes mellitus with diabetic neuropathy, unspecified; I25.10 Atherosclerotic heart disease of native coronary artery without angina pectoris; G25.81 Restless legs syndrome; K21.9 Gastro-esophageal reflux disease without esophagitis; G47.33 Obstructive sleep apnea (adult) (pediatric); Z79.82 Long term (current) use of aspirin; Z79.84 Long term (current) use of oral hypoglycemic drugs; Z79.899 Other long term (current) drug therapy; Z88.0 Allergy status to penicillin; Z88.6 Allergy status to analgesic agent; Z88.8 Allergy status to other drugs, medicaments and biological substances; Z95.5 Presence of coronary angioplasty implant and graft
CPT/HCPCS: J1100; J1885; J1956; J2405; J2704; J3490; S0020

== ENCOUNTER 2022-10-11 18:47 | Inpatient (IN) | payer BC ==
[2022-10-11] MEDS ORDERED: Pantoprazole 40 MG VIAL ONE ×2 (19:16→19:18)
[2022-10-11] MEDS ORDERED: Pantoprazole 80 MG, Admixture Fee 1 EACH in Sodium Chloride 0.9% 100 ML IVPB SCH (19:45)
[2022-10-11 19:55] LABS: #Eosinphils 0.1 thou/uL (0.0-0.7); #Monocytes 0.9 thou/uL (0.11-0.59); #Neutrophils 6.3 thou/uL (1.40-6.50); %Basophils 0.3 % (0.0-1.0); %Eosinophils 0.9 % (0.0-10.0); %Lymphocytes 35.2 % (21.0-51.0); %Monocytes 8.1 % (0.0-10.0); %Neutrophils 55.5 % (42.0-75.0); Hemoglobin 7.4 g/dL (12.0-16.0); Mean Corpuscular HGB CONC 33.3 g/dL (32.0-36.0); Mean Corpuscular Hemoglobin 29.5 pg (27.0-31.0); Mean Corpuscular Volume 88.5 fl (78.0-98.0); Mean Platelet Volume 8.4 fL (7.4-10.4); Platelet Count 178 10x3/uL (130-400); RBC Distribution Width 13.5 % (11.5-14.5); White Blood Cell (WBC) Count 11.4 10x3/uL (4.8-10.8)
[2022-10-11 20:09] LABS: INR-International Normal Ratio 1.2; PTT 24.8 sec (22.9-36.1); Prothrombin Time 15.4 sec (12.0-14.7)
[2022-10-11] MEDS ORDERED: Acetaminophen 500 MG TAB ONE (20:13)
[2022-10-11 20:35] LABS: Bacteria/HPF 4+ HPF (None Seen); Bilirubin Negative (Negative); Blood, Urine Negative (Negative); Clarity Clear (Clear); Glucose, Urine (Dipstick) 30 mg/dL (Negative); Ketone, Urine Negative (Negative); Leukocyte 500 Leu/uL (Negative); Nitrite Negative (Negative); Protein, Urine (Dipstick) Negative (Neg-Trace); RBC/HPF 0-3 HPF (0-3); Specific Gravity, Urine 1.023 (1.002-1.036); Urobilinogen 3 mg/dL (Less than 2); WBC/HPF Greater than 50 HPF (0-3)
[2022-10-11] MEDS ORDERED: cefTRIAXone\\ROCEPHIN 2 GM VIAL ONE (21:49)
[2022-10-11 23:00] VITALS: BMI 29.0
[2022-10-12 00:02] LABS: SARS-CoV-2 NAA Rapid Test Not Detected (NotDetected)
[2022-10-12] MEDS ORDERED: Senokot S 8.6-50 MG TAB PO PRN (04:03)
[2022-10-12] MEDS ORDERED: Ondansetron ODT 4 MG TAB PO PRN (04:03)
[2022-10-12] MEDS: Dextrose 5 %-0.45 % NaCl 1,000 ML IV SCH ×2 (05:14→15:32)
[2022-10-12 05:52] LABS: Hemoglobin 6.5 g/dL (12.0-16.0)
[2022-10-12] MEDS ORDERED: cefTRIAXone\\ROCEPHIN 1 GM VIAL ONE (09:42)
[2022-10-12] MEDS ORDERED: Fentanyl 100 MCG/2 ML VIAL ONE ×2 (10:34→12:21)
[2022-10-12] MEDS ORDERED: Ketamine 50 MG/ML (10ML VIAL) ONE (10:38)
[2022-10-12] MEDS ORDERED: PROPOFOL 200 MG/20 ML VIAL ONE (10:56)
[2022-10-12] MEDS ORDERED: Lidocaine 1% PF 5 ML VIAL ONE (10:56)
[2022-10-12] MEDS ORDERED: Ondansetron PF 4 MG/2 ML Vial ONE (10:56)
[2022-10-12] MEDS: cefTRIAXone\\ROCEPHIN 1 GM in Sodium Chloride 0.9% 100 ML IVPB SCH (14:23)
[2022-10-12] MEDS: DULoxetine 60 MG CAP PO SCH (14:23)
[2022-10-12] MEDS: Budesonide 0.5 MG/2 ML NEB NEB SCH ×2 (14:23→18:19)
[2022-10-12 15:00] LABS: Hemoglobin 9.9 g/dL (12.0-16.0)
[2022-10-12] MEDS: Acetaminophen 325 MG TAB PO PRN (15:03)
[2022-10-12] MEDS: Atorvastatin Calcium 20 MG TAB PO SCH (20:13)
[2022-10-12] MEDS: HYDROcodone/Acetaminophen 5/325 mg Tablet PO PRN (20:13)
[2022-10-12] MEDS: Amitriptyline HCl 25 MG TAB PO SCH (20:13)
[2022-10-13] MEDS: Dextrose 5 %-0.45 % NaCl 1,000 ML IV SCH ×2 (01:51→15:38)
[2022-10-13 06:59] LABS: #Eosinphils 0.3 thou/uL (0.0-0.7); #Lymphocytes 1.5 thou/uL (1.20-3.40); #Monocytes 0.6 thou/uL (0.11-0.59); #Neutrophils 3.4 thou/uL (1.40-6.50); %Basophils 0.6 % (0.0-1.0); %Eosinophils 5.6 % (0.0-10.0); %Lymphocytes 25.3 % (21.0-51.0); %Monocytes 9.9 % (0.0-10.0); %Neutrophils 58.6 % (42.0-75.0); Hemoglobin 9.5 g/dL (12.0-16.0); Mean Corpuscular HGB CONC 34.1 g/dL (32.0-36.0); Mean Corpuscular Volume 90.8 fl (78.0-98.0); Platelet Count 120 10x3/uL (130-400); RBC Distribution Width 14.2 % (11.5-14.5); Red Blood Cell (RBC) Count 3.05 mill/uL (4.20-5.40); White Blood Cell (WBC) Count 5.8 10x3/uL (4.8-10.8)
[2022-10-13 07:19] LABS: Anion Gap 10 mmol/L (10-20); BUN (Urea Nitrogen) 7 mg/dL (9.8-20.1); Calc. Creatinine Clearance 115 mL/min (70-130); Calcium 7.4 mg/dL (7.8-10.44); Carbon Dioxide 19 mmol/L (23-31); Chloride 114 mmol/L (98-107); Estimated GFR 98; Glucose 183 mg/dL (80-115); Potassium 3.2 mmol/L (3.5-5.1); Sodium 140 mmol/L (136-145)
[2022-10-13] MEDS: cefTRIAXone\\ROCEPHIN 1 GM in Sodium Chloride 0.9% 100 ML IVPB SCH (09:24)
[2022-10-13] MEDS: DULoxetine 60 MG CAP PO SCH (09:24)
[2022-10-13] MEDS: Budesonide 0.5 MG/2 ML NEB NEB SCH ×2 (10:59→18:37)
[2022-10-13] MEDS: HYDROcodone/Acetaminophen 5/325 mg Tablet PO PRN ×2 (13:51→20:28)
[2022-10-13] MEDS ORDERED: Sodium Chloride 0.9% 1,000 ML IV SCH (16:00)
[2022-10-13] MEDS: Atorvastatin Calcium 20 MG TAB PO SCH (20:27)
[2022-10-13] MEDS: Amitriptyline HCl 25 MG TAB PO SCH (20:27)
[2022-10-14] MEDS: Budesonide 0.5 MG/2 ML NEB NEB SCH (06:26)
[2022-10-14] MEDS: Acetaminophen 325 MG TAB PO PRN (07:20)
[2022-10-14] MEDS: DULoxetine 60 MG CAP PO SCH (07:20)
[2022-10-14 08:09] LABS: ALT (SGPT) 19 U/L (8-55); AST (SGOT) 22 U/L (5-34); Albumin 2.9 g/dL (3.4-4.8); Alkaline Phosphatase 81 U/L (40-110); Anion Gap 10 mmol/L (10-20); BUN (Urea Nitrogen) Less than 4 mg/dL (9.8-20.1); Bilirubin, Total 0.6 mg/dL (0.2-1.2); Calc. Creatinine Clearance 117 mL/min (70-130); Calcium 7.9 mg/dL (7.8-10.44); Carbon Dioxide 21 mmol/L (23-31); Chloride 111 mmol/L (98-107); Estimated GFR 99; Globulin 2.3 g/dL (2.4-3.5); Glucose 161 mg/dL (80-115); Potassium 3.1 mmol/L (3.5-5.1); Protein, Total 5.2 g/dL (5.8-8.1); Sodium 139 mmol/L (136-145)
[2022-10-14 08:26] VITALS: BP 130/81; TEMP 98.8
[2022-10-14 10:45] LABS: Hemoglobin 8.7 g/dL (12.0-16.0); Mean Corpuscular HGB CONC 33.9 g/dL (32.0-36.0); Mean Corpuscular Hemoglobin 30.2 pg (27.0-31.0); Mean Corpuscular Volume 89.1 fl (78.0-98.0); Mean Platelet Volume 7.5 fL (7.4-10.4); Platelet Count 125 10x3/uL (130-400); RBC Distribution Width 14.3 % (11.5-14.5); Red Blood Cell (RBC) Count 2.87 mill/uL (4.20-5.40); White Blood Cell (WBC) Count 4.7 10x3/uL (4.8-10.8)
== END 2022-10-14 11:38 | disposition home or self-care (01) | DRG 378 ==
LOC: ERS 18:47 → ERHOLD 21:40 → SURG A 10-12 10:19 → T4-B 10-12 13:40
PROVIDERS: ADMIT Student in an Organized Health Care Education/Training Program; ATTEND Internal Medicine
PROC: 30233N1 Transfusion of Nonautologous Red Blood Cells into Peripheral Vein, Percutaneous Approach (ICD-10-PCS; principal; 2022-10-12)
PROC: 0W3P8ZZ Control Bleeding in Gastrointestinal Tract, Via Natural or Artificial Opening Endoscopic (ICD-10-PCS; 2022-10-12)
DX: K25.4 Chronic or unspecified gastric ulcer with hemorrhage (principal); D62 Acute posthemorrhagic anemia; N30.00 Acute cystitis without hematuria; Z20.822 Contact with and (suspected) exposure to COVID-19; M79.7 Fibromyalgia; I10 Essential (primary) hypertension; F41.9 Anxiety disorder, unspecified; J44.9 Chronic obstructive pulmonary disease, unspecified; F32.A Depression, unspecified; E11.9 Type 2 diabetes mellitus without complications; I25.10 Atherosclerotic heart disease of native coronary artery without angina pectoris; K44.9 Diaphragmatic hernia without obstruction or gangrene; I25.2 Old myocardial infarction; Z95.5 Presence of coronary angioplasty implant and graft; Z90.49 Acquired absence of other specified parts of digestive tract; Z98.51 Tubal ligation status; Z88.0 Allergy status to penicillin; Z88.8 Allergy status to other drugs, medicaments and biological substances
CPT/HCPCS: 36415; 36416; 36430; 80048; 80053; 81003; 81015; 82274; 84484; 85014; 85018; 85025; 85027; 85610; 85730; 86850; 86900; 86901; 87086; 87186; 93005; 94640; 96374; 96375; C9113; J0696; J2405; J2704; J3010; J3490; J7042; J7050; J7626; P9016; U0002

== ENCOUNTER 2022-11-08 18:00 | Outpatient (CLI) | payer BC | END 2022-11-08 18:01 | disposition home or self-care (01) | LOC: SLEEPLAB 18:00 | PROVIDERS: ATTEND Family Medicine | DX: G47.33 Obstructive sleep apnea (adult) (pediatric) (principal) | CPT/HCPCS: 95800 ==

== ENCOUNTER → 2022-11-24 | Day surgery (SDC) | payer BC ==
[~2022-11-24] MED LIST: Lidocaine Jelly 2% Urojet 10 ML ONE
== END | disposition home or self-care (01) ==
LOC: SDC 14:07
PROVIDERS: ATTEND Surgery
DX: K44.9 Diaphragmatic hernia without obstruction or gangrene (principal); K21.9 Gastro-esophageal reflux disease without esophagitis; Z88.0 Allergy status to penicillin; Z88.8 Allergy status to other drugs, medicaments and biological substances
CPT/HCPCS: J2001

== ENCOUNTER 2023-04-29 07:59 | Outpatient (CLI) | payer BC | END 2023-04-29 08:00 | disposition home or self-care (01) | LOC: CT 07:59 | PROVIDERS: ATTEND Orthopaedic Surgery Hand Surgery | DX: S52.501A Unspecified fracture of the lower end of right radius, initial encounter for closed fracture (principal) ==

== ENCOUNTER 2023-05-26 07:47 | Outpatient (CLI) | payer BC | END 2023-05-26 07:48 | disposition home or self-care (01) | LOC: BICMAMMO 07:47 | PROVIDERS: ATTEND Family Medicine | DX: Z12.31 Encounter for screening mammogram for malignant neoplasm of breast (principal); Z91.89 Other specified personal risk factors, not elsewhere classified; Z98.890 Other specified postprocedural states; Z80.3 Family history of malignant neoplasm of breast | CPT/HCPCS: 77063; 77067 ==

== ENCOUNTER 2024-09-18 08:42 | Day surgery (SDC) | payer BC ==
[2024-09-18] MEDS ORDERED: Ondansetron PF 4 MG/2 ML Vial ONE ×2 (11:24→12:16)
[2024-09-18] MEDS ORDERED: PROPOFOL 20 ML ONE ×2 (11:24→13:05)
[2024-09-18] MEDS ORDERED: fentaNYL PF 100 MCG/2 ML SYRINGE ONE (11:24)
[2024-09-18] MEDS ORDERED: Lidocaine 1% PF 5 ML VIAL ONE (11:24)
[2024-09-18] MEDS ORDERED: Bupivacaine PF 0.5% 30 ML VIAL ONE (11:44)
[2024-09-18] MEDS ORDERED: Bacitracin Zinc Ointment 30 gm TUBE ONE (11:44)
[2024-09-18] MEDS ORDERED: CEFAZOLIN 2 GM VIAL ONE (12:01)
[2024-09-18] MEDS ORDERED: Midazolam HCl 2 mg/2 ml Vial ONE (12:14)
[2024-09-18] MEDS ORDERED: Scopolamine 1 mg/72 hour Patch ONE (12:15)
[2024-09-18] MEDS ORDERED: Dexamethasone 20 MG/5 ML VIAL ONE (12:36)
[2024-09-18] MEDS ORDERED: Glycopyrrolate 0.2 MG/ML 5 ML SYRINGE ONE (12:47)
[2024-09-18] MEDS ORDERED: PHENYLEPHRINE-NS 100 MCG/ML 10 ML SYRINGE ONE (13:28)
[2024-09-18] MEDS ORDERED: fentaNYL 50 mcg/mL 1 mL Vial ONE (13:59)
== END 2024-09-18 17:13 | disposition home or self-care (01) ==
LOC: SDC 08:42
PROVIDERS: ATTEND Orthopaedic Surgery Hand Surgery
PROC: 01S40ZZ Reposition Ulnar Nerve, Open Approach (ICD-10-PCS; principal; 2024-09-18)
PROC: 01N50ZZ Release Median Nerve, Open Approach (ICD-10-PCS; principal; 2024-09-18)
DX: G56.03 Carpal tunnel syndrome, bilateral upper limbs (principal); G56.22 Lesion of ulnar nerve, left upper limb; G43.909 Migraine, unspecified, not intractable, without status migrainosus; G47.33 Obstructive sleep apnea (adult) (pediatric); M19.042 Primary osteoarthritis, left hand; E11.40 Type 2 diabetes mellitus with diabetic neuropathy, unspecified; F32.A Depression, unspecified; I25.10 Atherosclerotic heart disease of native coronary artery without angina pectoris; J45.909 Unspecified asthma, uncomplicated; K21.9 Gastro-esophageal reflux disease without esophagitis; K76.0 Fatty (change of) liver, not elsewhere classified; Z95.5 Presence of coronary angioplasty implant and graft; Z98.51 Tubal ligation status; Z98.890 Other specified postprocedural states; Z90.89 Acquired absence of other organs; Z88.8 Allergy status to other drugs, medicaments and biological substances; Z88.0 Allergy status to penicillin; Z79.51 Long term (current) use of inhaled steroids; Z79.82 Long term (current) use of aspirin; Z79.899 Other long term (current) drug therapy
CPT/HCPCS: J0665; J1100; J2250; J2405; J2704; J3010

== ENCOUNTER 2024-11-12 16:01 | Outpatient (CLI) | payer BC ==
[2024-11-12 16:47] LABS: #Basophils 0.04 10x3/uL (0.0-0.2); %Basophils 0.6 % (0.0-1.0); %Lymphocytes 29.4 % (21.0-51.0); %Monocytes 8.3 % (0.0-10.0); %Neutrophils 59.4 % (42.0-75.0); Hemoglobin 12.6 g/dL (12.0-16.0); Mean Corpuscular HGB CONC 32.3 g/dL (32.0-36.0); Mean Corpuscular Hemoglobin 29.8 pg (27.0-31.0); Mean Corpuscular Volume 92.2 fL (78.0-98.0); Mean Platelet Volume 10.1 fL (7.4-10.4); Platelet Count 180 10x3/uL (130-400); RBC Distribution Width 13.3 % (11.5-14.5); Red Blood Cell (RBC) Count 4.23 mill/uL (4.20-5.40)
== END 2024-11-12 16:02 | disposition home or self-care (01) ==
LOC: LABBT 16:01
PROVIDERS: ATTEND Orthopaedic Surgery Hand Surgery
DX: Z01.818 Encounter for other preprocedural examination (principal); G56.21 Lesion of ulnar nerve, right upper limb; G56.01 Carpal tunnel syndrome, right upper limb
CPT/HCPCS: 85025; 93005; 93010

== ENCOUNTER 2024-11-13 08:21 | Day surgery (SDC) | payer BC ==
[2024-11-12 16:10] VITALS: BMI 31.4
[2024-11-13] MEDS ORDERED: LevoFLOXacin D5W 500 mg (100 mL) BAG ONE (09:21)
[2024-11-13] MEDS ORDERED: Clindamycin/D5W 900 mg/50 ml Premix Bag ONE (09:22)
[2024-11-13] MEDS ORDERED: Lidocaine 1% PF 5 ML VIAL ONE (09:25)
[2024-11-13] MEDS ORDERED: PROPOFOL 20 ML ONE (09:25)
[2024-11-13] MEDS ORDERED: CEFAZOLIN 2 GM VIAL ONE (10:04)
[2024-11-13] MEDS ORDERED: fentaNYL 50 mcg/mL 1 mL Vial ONE ×2 (10:12→13:00)
[2024-11-13] MEDS ORDERED: PHENYLEPHRINE-NS 100 MCG/ML 10 ML SYRINGE ONE (10:43)
[2024-11-13] MEDS ORDERED: ePHEDrine Sulfate 50 MG/10 ML VIAL ONE (10:48)
[2024-11-13] MEDS ORDERED: Vasopressin 20 UNITS/ML VIAL ONE (10:52)
[2024-11-13] MEDS ORDERED: Dexamethasone 4 mg/ml Vial ONE (11:11)
[2024-11-13] MEDS ORDERED: Ketorolac Tromethamine 30 MG (1 mL) VIAL ONE (13:19)
== END 2024-11-13 15:10 | disposition home or self-care (01) ==
LOC: SDC 08:21
PROVIDERS: ATTEND Orthopaedic Surgery Hand Surgery
PROC: 01N50ZZ Release Median Nerve, Open Approach (ICD-10-PCS; principal; 2024-11-13)
PROC: 01S40ZZ Reposition Ulnar Nerve, Open Approach (ICD-10-PCS; 2024-11-13)
DX: G56.01 Carpal tunnel syndrome, right upper limb (principal); G56.21 Lesion of ulnar nerve, right upper limb; E11.42 Type 2 diabetes mellitus with diabetic polyneuropathy; I08.1 Rheumatic disorders of both mitral and tricuspid valves; R79.89 Other specified abnormal findings of blood chemistry; F32.A Depression, unspecified; K21.9 Gastro-esophageal reflux disease without esophagitis; G43.909 Migraine, unspecified, not intractable, without status migrainosus; G47.33 Obstructive sleep apnea (adult) (pediatric); D50.9 Iron deficiency anemia, unspecified; Z90.89 Acquired absence of other organs; Z88.0 Allergy status to penicillin; Z88.8 Allergy status to other drugs, medicaments and biological substances; Z98.890 Other specified postprocedural states; Z79.899 Other long term (current) drug therapy
CPT/HCPCS: 88304; A6223; C1713; J1100; J1885; J1956; J2704; J3010; J3490